=== PATIENT | male | born 1970 | race Hispanic/Latino ===

== ENCOUNTER 2018-03-05 14:51 | Emergency (ER) | payer BC ==
[2018-03-05 15:39] LABS: BASOPHILS % (AUTO) 0.4 % (0.0-5.0); EOSINOPHILS % (AUTO) 3.9 % (0.0-8.0); HEMATOCRIT 49.9 % (42-54); LYMPHOCYTES % (AUTO) 26.6 % (21.0-51.0); MEAN CORPUSCULAR HEMOGLOBIN 27.2 pg (27.0-33.0); MEAN CORPUSCULAR HGB CONC 33.7 g/dL (32.0-36.0); MEAN CORPUSCULAR VOLUME 80.7 fL (79-99); MONOCYTES % (AUTO) 8.6 % (3.0-13.0); NEUTROPHILS % (AUTO) 60.5 % (40.0-77.0); NUCLEATED RED BLOOD CELLS 0.2 % (0.0-0.19); PLATELET COUNT (AUTO) 161 K/uL (130-400); RED BLOOD CELL COUNT(AUTO) 6.19 MIL/uL (4.50-6.20); RED CELL DISTRIBUTION WIDTH 14.6 % (11.0-15.5); WHITE BLOOD COUNT (AUTO) 9.5 K/uL (4.8-10.8)
[2018-03-05 15:45] LABS: CREATININE 1.2 mg/dL (0.5-1.5)
== END 2018-03-05 18:51 | disposition home or self-care (01) ==
LOC: EDH 14:51
DX: K64.5 Perianal venous thrombosis (principal)
CPT/HCPCS: 36415; 46083; 80048; 85025

== ENCOUNTER 2021-08-11 16:06 | Emergency (ER) | payer BC, OTHER ==
[~2021-08-11] VITALS: Ht 188 cm; Wt 122.5 kg
[2021-08-11 16:08] VITALS: BP 130/84
[2021-08-11] MEDS ORDERED: TETRACAINE HCL 0.5% 4 ML OPHTH SOLN ONE (16:14)
[2021-08-11] MEDS ORDERED: NA BORATE/BORIC AC/H2O/NACL 120 ML OPHTH IRRIG SOLN ONE (16:14)
[2021-08-11] MEDS ORDERED: FLUORESCEIN SODIUM 1 STRIP STRIP ONE (16:15)
[2021-08-11] MEDS ORDERED: TETANUS/DIPHTHERIA TOXOID [ADULT] 0.5 ML VIAL IM ONE (17:00)
[2021-08-11] MEDS ORDERED: GENTAMICIN SULFATE 0.3% 5ML DROPS OD SCH (17:30)
== END 2021-08-11 17:54 | disposition home or self-care (01) ==
LOC: EDH 16:06
DX: S05.02XA Injury of conjunctiva and corneal abrasion without foreign body, left eye, initial encounter (principal); X58.XXXA Exposure to other specified factors, initial encounter; Y93.89 Activity, other specified; Y92.89 Other specified places as the place of occurrence of the external cause; Y99.8 Other external cause status
CPT/HCPCS: 90471; 90714